=== PATIENT | female | born 1950 | race Caucasian/White ===

== ENCOUNTER 2022-01-03 20:54 | Emergency (ER) | payer OTHER, MEDICARE ==
[2022-01-03 21:31] VITALS: TEMP 98.1; BMI 49.4
[2022-01-03] MEDS ORDERED: ACETAMINOPHEN 1000 MG/100 ML BAG IVPB ONE (21:48)
[2022-01-03 22:35] LABS: BASO % 0.3 % (0-2.0); EOS % 0.8 % (0-4.5); HEMATOCRIT 32.7 % (32.4-45.2); HEMOGLOBIN 10.5 GM/dL (10.7-15.3); LYMPH % 8.4 % (8-40); MCH 23.7 pg (25.7-33.7); MCHC 32.2 g/dl (32.0-36.0); MEAN CELL VOLUME 73.8 fl (80-96); MEAN PLT VOLUME 7.3 fl (7.5-11.1); MONO % 7.8 % (3.8-10.2); NEUT % 82.7 % (42.8-82.8); PLATELET COUNT 228 10^3/uL (134-434); RBC 4.43 M/mm3 (3.60-5.2); RDW 16.2 % (11.6-15.6); WHITE BLOOD COUNT 11.7 K/mm3 (4.0-10.0)
[2022-01-03 22:39] LABS: EPI CELLS 6 /uL (0-25.1); HYALINE CASTS 1 /uL (0-3.1); PH,URINE 7.5 (5.0-8.0); URINE APPEARANCE CLEAR; URINE BACTERIA 0 /uL (0-1359); URINE BILIRUBIN NEGATIVE (NEGATIVE); URINE COLOR ORANGE; URINE GLUCOSE (UA) NEGATIVE (NEGATIVE); URINE KETONE NEGATIVE (NEGATIVE); URINE LEUK ESTERASE TRACE (NEGATIVE); URINE NITRITE NEGATIVE (NEGATIVE); URINE PROTEIN 1+ (NEGATIVE); URINE RBC 3916 /uL (0-23.9); URINE UROBILINOGEN 0.2 mg/dL (0.2-1.0); URINE WBC 29 /uL (0-25.8)
[2022-01-03] MEDS ORDERED: ACETAMINOPHEN INJECTION 100 ML IVPB ONE (22:42)
[2022-01-03 22:48] LABS: ALBUMIN 3.4 g/dl (3.4-5.0); CALCIUM 9.7 mg/dL (8.5-10.1)
[2022-01-03 22:54] LABS: BILIRUBIN,TOTAL 0.4 mg/dL (0.2-1); TOT PROT 6.2 g/dl (6.4-8.2)
[2022-01-04] MEDS ORDERED: KETOROLAC TROMETHAMINE 15 MG/ML VIAL IVPUSH ONE (01:28)
[2022-01-04] MEDS ORDERED: TAMSULOSIN HCL 0.4 MG CAP PO ONE (01:28)
[2022-01-04] MEDS ORDERED: SODIUM CHLORIDE 500 ML IV STA (01:29)
[2022-01-04] MEDS ORDERED: TAMSULOSIN HCL 0.4 MG CAP ONE (01:36)
[2022-01-04] MEDS ORDERED: KETOROLAC TROMETHAMINE 15 MG/ML VIAL ONE (01:36)
[2022-01-04 01:42] VITALS: BP 150/80; PULSE 66; RESP 18
== END 2022-01-04 02:29 | disposition home or self-care (01) ==
LOC: JER 20:54
PROC: 3E0333Z Introduction of Anti-inflammatory into Peripheral Vein, Percutaneous Approach (ICD-10-PCS; principal; 2022-01-03)
PROC: 3E0333Z Introduction of Anti-inflammatory into Peripheral Vein, Percutaneous Approach (ICD-10-PCS; 2022-01-03)
PROC: 3E0337Z Introduction of Electrolytic and Water Balance Substance into Peripheral Vein, Percutaneous Approach (ICD-10-PCS; 2022-01-03)
DX: N20.0 Calculus of kidney (principal)
CPT/HCPCS: 36415; 74176-TC; 80053; 81003; 83605; 83690; 85025; 87086; 99285-25

== ENCOUNTER 2024-02-03 16:52 | Inpatient (IN) | payer OTHER, MEDICARE ==
[2024-02-03 18:55] LABS: BASO % 0.3 % (0-2.0); EOS % 1.2 % (0-4.5); HEMATOCRIT 35.1 % (32.4-45.2); HEMOGLOBIN 11.5 GM/dL (10.7-15.3); LYMPH % 10.8 % (8-40); MCH 27.4 pg (25.7-33.7); MCHC 32.7 g/dl (32.0-36.0); MEAN CELL VOLUME 83.7 fl (80-96); MEAN PLT VOLUME 7.1 fl (7.5-11.1); MONO % 7.9 % (3.8-10.2); NEUT % 79.8 % (42.8-82.8); PLATELET COUNT 212 10^3/uL (134-434); RBC 4.19 M/mm3 (3.60-5.2); RDW 15.4 % (11.6-15.6); WHITE BLOOD COUNT 8.3 K/mm3 (4.0-10.0)
[2024-02-03 19:01] LABS: INR 1.06 (0.83-1.09); PROTHROMBIN TIME (PATIENT) 12.2 SEC (9.7-13.0)
[2024-02-03] MEDS ORDERED: CLINDAMYCIN 600MG PREMIX IVPB 600 MG/50 ML BAG IVPB ONE (19:03)
[2024-02-03] MEDS ORDERED: ACETAMINOPHEN INJECTION 100 ML ONE (19:03)
[2024-02-03 19:04] LABS: ACTIVATED PTT 35.2 SECONDS (25.2-36.5)
[2024-02-03] MEDS: ACETAMINOPHEN 1000 MG/100 ML BAG IVPB ONE (19:11)
[2024-02-03 19:13] LABS: POTASSIUM 4.4 mmol/L (3.5-5.1)
[2024-02-03 19:15] LABS: CALCIUM 9.9 mg/dL (8.5-10.1)
[2024-02-03 19:16] LABS: ALBUMIN 3.5 g/dl (3.4-5.0); BLOOD UREA NITROGEN 20.3 mg/dL (7-18); MAGNESIUM 2.1 mg/dL (1.8-2.4)
[2024-02-03 19:19] LABS: CREATININE 0.9 mg/dL (0.55-1.3)
[2024-02-03 19:20] LABS: BILIRUBIN,TOTAL 0.4 mg/dL (0.2-1)
[2024-02-03 19:21] LABS: TOT PROT 6.4 g/dl (6.4-8.2)
[2024-02-03 19:34] LABS: ERYTHROCYTE SEDIMENTATION RATE 38 mm/hr (0-30)
[2024-02-03] MEDS ORDERED: LABETALOL HCL 200 MG TABLET (FP) ONE (19:35)
[2024-02-03] MEDS ORDERED: hydrALAZINE HCL 50 MG TABLET (FP) ONE (19:36)
[2024-02-03] MEDS: CLINDAMYCIN 600MG PREMIX IVPB 600 MG/50 ML BAG IVPB ONE (19:42)
[2024-02-03] MEDS: hydrALAZINE HCL 50 MG TABLET (FP) PO ONE (19:43)
[2024-02-03] MEDS: LABETALOL HCL 200 MG TABLET (FP) PO ONE (19:43)
[2024-02-04 00:18] LABS: URINE APPEARANCE TURBID; URINE BILIRUBIN NEGATIVE (NEGATIVE); URINE COLOR YELLOW; URINE GLUCOSE (UA) NEGATIVE (NEGATIVE); URINE KETONE NEGATIVE (NEGATIVE); URINE LEUK ESTERASE NEGATIVE (NEGATIVE); URINE NITRITE NEGATIVE (NEGATIVE); URINE PROTEIN NEGATIVE (NEGATIVE); URINE UROBILINOGEN 0.2 mg/dL (0.2-1.0)
[2024-02-04] MEDS: FUROSEMIDE 40 MG/4 ML INJECTABLE VIAL IVPUSH ONE (01:45)
[2024-02-04 09:09] LABS: HEMATOCRIT 33.8 % (32.4-45.2); HEMOGLOBIN 10.9 GM/dL (10.7-15.3); MCH 27.2 pg (25.7-33.7); MCHC 32.1 g/dl (32.0-36.0); MEAN CELL VOLUME 84.5 fl (80-96); MEAN PLT VOLUME 7.6 fl (7.5-11.1); PLATELET COUNT 201 10^3/uL (134-434); RDW 15.5 % (11.6-15.6); WHITE BLOOD COUNT 7.7 K/mm3 (4.0-10.0)
[2024-02-04 09:39] LABS: POTASSIUM 3.8 mmol/L (3.5-5.1)
[2024-02-04] MEDS: ENOXAPARIN NA (PORCINE) 40 MG/0.4 ML DISP.SYRIN SQ SCH (09:40)
[2024-02-04 09:50] LABS: CHOLESTEROL 199 mg/dL (50-200); LDL CHOLESTEROL (ONLY SJRH) 85 mg/dL (5-100)
[2024-02-04 09:52] LABS: HDL CHOLESTEROL 96 mg/dL (40-60)
[2024-02-04 09:57] LABS: ALBUMIN 3.2 g/dl (3.4-5.0); BLOOD UREA NITROGEN 19.3 mg/dL (7-18); CALCIUM 9.8 mg/dL (8.5-10.1)
[2024-02-04 09:58] LABS: MAGNESIUM 2.2 mg/dL (1.8-2.4)
[2024-02-04 10:00] LABS: PHOSPHOROUS 2.8 mg/dL (2.5-4.9)
[2024-02-04] MEDS ORDERED: LABETALOL HCL 200 MG TABLET (FP) PO SCH (10:00)
[2024-02-04] MEDS ORDERED: SPIRONOLACTONE 25 MG TABLET PO SCH (10:00)
[2024-02-04] MEDS ORDERED: ENOXAPARIN NA (PORCINE) 40 MG/0.4 ML DISP.SYRIN SQ SCH (10:00)
[2024-02-04] MEDS ORDERED: hydrALAZINE HCL 50 MG TABLET (FP) PO SCH (10:00)
[2024-02-04] MEDS ORDERED: FUROSEMIDE 20 MG TABLET (FP) PO SCH (10:00)
[2024-02-04] MEDS ORDERED: LISINOPRIL 10 MG TABLET PO SCH (10:00)
[2024-02-04] MEDS ORDERED: DOXAZOSIN MESYLATE 1 MG TABLET PO SCH (10:00)
[2024-02-04 10:01] LABS: BILIRUBIN,TOTAL 0.6 mg/dL (0.2-1); CREATININE 0.9 mg/dL (0.55-1.3)
[2024-02-04 10:02] LABS: TOT PROT 5.9 g/dl (6.4-8.2)
[2024-02-04] MEDS: SPIRONOLACTONE 25 MG TABLET PO SCH (11:18)
[2024-02-04] MEDS: hydrALAZINE HCL 50 MG TABLET (FP) PO SCH (11:19)
[2024-02-04] MEDS: FUROSEMIDE 40 MG TABLET (FP) PO SCH (11:19)
[2024-02-04] MEDS: LABETALOL HCL 200 MG TABLET (FP) PO SCH (11:20)
[2024-02-04] MEDS: CEFTRIAXONE 1 G/50 ML PREMIX 50 ML IVPB SCH (11:21)
[2024-02-04] MEDS: DOXAZOSIN MESYLATE 4 MG TABLET PO SCH (11:21)
[2024-02-05 09:52] LABS: BASO % 0.6 % (0-2.0); HEMATOCRIT 34.5 % (32.4-45.2); LYMPH % 20.2 % (8-40); MCH 27.1 pg (25.7-33.7); MCHC 31.8 g/dl (32.0-36.0); MEAN PLT VOLUME 7.7 fl (7.5-11.1); MONO % 10.8 % (3.8-10.2); NEUT % 66.4 % (42.8-82.8); PLATELET COUNT 217 10^3/uL (134-434); RBC 4.06 M/mm3 (3.60-5.2); RDW 15.1 % (11.6-15.6); WHITE BLOOD COUNT 6.5 K/mm3 (4.0-10.0)
[2024-02-05 10:01] LABS: POTASSIUM 3.7 mmol/L (3.5-5.1)
[2024-02-05 10:06] LABS: ALBUMIN 2.9 g/dl (3.4-5.0)
[2024-02-05 10:08] LABS: BLOOD UREA NITROGEN 18.3 mg/dL (7-18)
[2024-02-05 10:09] LABS: CALCIUM 9.1 mg/dL (8.5-10.1); CREATININE 0.9 mg/dL (0.55-1.3); PHOSPHOROUS 3.1 mg/dL (2.5-4.9)
[2024-02-05 10:10] LABS: MAGNESIUM 2.3 mg/dL (1.8-2.4)
[2024-02-05 10:11] LABS: BILIRUBIN,TOTAL 0.6 mg/dL (0.2-1); TOT PROT 5.6 g/dl (6.4-8.2)
[2024-02-05] MEDS: CEFAZOLIN 1 GM/D5W 1 GM/50 ML BAG IVPB SCH (10:51)
[2024-02-05] MEDS: LISINOPRIL 20 MG TABLET PO SCH (10:53)
[2024-02-05] MEDS: AMMONIUM LACTATE 12% LOTION 225 GM BOTTLE TP PRN (14:10)
[2024-02-05] MEDS: amLODIPine BESYLATE 10 MG TABLET (FP) PO SCH (14:19)
[2024-02-05] MEDS: ACETAMINOPHEN 325 MG TABLET (FP) PO ONE (21:37)
[2024-02-06 09:00] LABS: POTASSIUM 3.7 mmol/L (3.5-5.1)
[2024-02-06 09:04] LABS: CALCIUM 9.1 mg/dL (8.5-10.1)
[2024-02-06 09:05] LABS: ALBUMIN 2.8 g/dl (3.4-5.0); BLOOD UREA NITROGEN 17.5 mg/dL (7-18); MAGNESIUM 2.3 mg/dL (1.8-2.4)
[2024-02-06 09:08] LABS: BASO % 0.4 % (0-2.0); CREATININE 0.9 mg/dL (0.55-1.3); EOS % 3.9 % (0-4.5); HEMATOCRIT 32.3 % (32.4-45.2); HEMOGLOBIN 10.5 GM/dL (10.7-15.3); LYMPH % 22.1 % (8-40); MCH 27.5 pg (25.7-33.7); MCHC 32.6 g/dl (32.0-36.0); MEAN CELL VOLUME 84.2 fl (80-96); MEAN PLT VOLUME 7.5 fl (7.5-11.1); MONO % 13.1 % (3.8-10.2); NEUT % 60.5 % (42.8-82.8); PHOSPHOROUS 2.9 mg/dL (2.5-4.9); PLATELET COUNT 193 10^3/uL (134-434); RBC 3.84 M/mm3 (3.60-5.2); RDW 14.8 % (11.6-15.6); WHITE BLOOD COUNT 6.2 K/mm3 (4.0-10.0)
[2024-02-06 09:09] LABS: BILIRUBIN,TOTAL 0.3 mg/dL (0.2-1)
[2024-02-06 09:10] LABS: TOT PROT 5.4 g/dl (6.4-8.2)
[2024-02-06] MEDS: hydrALAZINE HCL 50 MG TABLET (FP) PO SCH (14:19)
[2024-02-07 10:20] LABS: BASO % 0.4 % (0-2.0); EOS % 4.2 % (0-4.5); HEMATOCRIT 31.9 % (32.4-45.2); HEMOGLOBIN 10.4 GM/dL (10.7-15.3); LYMPH % 18.5 % (8-40); MCH 27.7 pg (25.7-33.7); MCHC 32.6 g/dl (32.0-36.0); MEAN CELL VOLUME 84.9 fl (80-96); MEAN PLT VOLUME 7.5 fl (7.5-11.1); MONO % 8.9 % (3.8-10.2); PLATELET COUNT 203 10^3/uL (134-434); RBC 3.75 M/mm3 (3.60-5.2); RDW 15.2 % (11.6-15.6); WHITE BLOOD COUNT 7.1 K/mm3 (4.0-10.0)
[2024-02-07 10:30] LABS: ALBUMIN 2.8 g/dl (3.4-5.0); BLOOD UREA NITROGEN 17.5 mg/dL (7-18); CALCIUM 9.2 mg/dL (8.5-10.1)
[2024-02-07 10:33] LABS: CREATININE 0.9 mg/dL (0.55-1.3)
[2024-02-07 10:35] LABS: BILIRUBIN,TOTAL 0.4 mg/dL (0.2-1); TOT PROT 5.5 g/dl (6.4-8.2)
[2024-02-08 05:34] VITALS: RESP 18
[2024-02-09 10:47] LABS: BASO % 0.6 % (0-2.0); EOS % 4.4 % (0-4.5); HEMATOCRIT 35.9 % (32.4-45.2); HEMOGLOBIN 11.7 GM/dL (10.7-15.3); LYMPH % 19.5 % (8-40); MCH 27.4 pg (25.7-33.7); MCHC 32.6 g/dl (32.0-36.0); MEAN CELL VOLUME 84.2 fl (80-96); MEAN PLT VOLUME 7.7 fl (7.5-11.1); MONO % 8.7 % (3.8-10.2); NEUT % 66.8 % (42.8-82.8); PLATELET COUNT 250 10^3/uL (134-434); RBC 4.26 M/mm3 (3.60-5.2); RDW 15.2 % (11.6-15.6); WHITE BLOOD COUNT 6.6 K/mm3 (4.0-10.0)
[2024-02-09 10:48] LABS: ALBUMIN 3.1 g/dl (3.4-5.0); CALCIUM 9.6 mg/dL (8.5-10.1)
[2024-02-09 10:50] LABS: BLOOD UREA NITROGEN 18.6 mg/dL (7-18); MAGNESIUM 2.4 mg/dL (1.8-2.4)
[2024-02-09 10:52] LABS: PHOSPHOROUS 2.8 mg/dL (2.5-4.9)
[2024-02-09 10:53] LABS: BILIRUBIN,TOTAL 0.3 mg/dL (0.2-1)
[2024-02-09 14:11] VITALS: BP 157/55; PULSE 69; TEMP 98.1
[2024-02-10 16:10] VITALS: BMI 39.2
== END 2024-02-09 14:25 | disposition home or self-care (01) | DRG 603 ==
LOC: JER 16:52 → JERBED 22:30 → J5S 02-04 00:12
PROVIDERS: ADMIT Internal Medicine; ATTEND Internal Medicine
PROC: 0HBRXZZ Excision of Toe Nail, External Approach (ICD-10-PCS; principal; 2024-02-06)
DX: L03.115 Cellulitis of right lower limb (principal); I10 Essential (primary) hypertension; L03.116 Cellulitis of left lower limb; I87.2 Venous insufficiency (chronic) (peripheral); B35.1 Tinea unguium; I35.0 Nonrheumatic aortic (valve) stenosis; I73.9 Peripheral vascular disease, unspecified; M17.0 Bilateral primary osteoarthritis of knee
CPT/HCPCS: 36415; 71046-TC-FY; 80053; 80061; 81003; 83735; 83880; 84100; 84439; 84443; 84481; 84484; 85025; 85027; 85610; 85651; 85730; 87070; 87077; 87086; 87186; 87205; 93005; 93010; 93306-TC; 93970-TC; 97116-GP; 97162-GP; 99285-25; J0131